=== PATIENT | female | born 1970 | race Caucasian/White ===

== ENCOUNTER 2018-03-18 20:48 | Emergency (ER) | payer MEDICAID ==
[~2018-03-18] VITALS: Ht 165.1 cm; Wt 81.6 kg
[2018-03-18 20:53] VITALS: BP_SYST 127
--- NOTE | 2018-03-18 20:55 | NUR ---
Patient vital signs stable, condition stable to be placed in waiting room at this time. No acute distress noted. Will continue to monitor.
--- NOTE | 2018-03-18 22:50 | NUR ---
Patient called for placement no answer and not found in ED waiting room.
--- NOTE | 2018-03-18 22:55 | NUR ---
Patient called for placement no answer and not found in ED waiting room.
--- NOTE | 2018-03-18 23:01 | NUR ---
Patient called for placement no answer and not found in ED waiting room. [facility]BS
== END 2018-03-18 23:01 | disposition left against medical advice (07) ==
LOC: SED 20:48
DX: R10.9 Unspecified abdominal pain (principal); Z53.21 Procedure and treatment not carried out due to patient leaving prior to being seen by health care provider